=== PATIENT | male | born 1965 | race Caucasian/White ===

== ENCOUNTER 2021-01-21 02:07 | Emergency (ER) | payer OTHER ==
[~2021-01-21] VITALS: Ht 175.3 cm; Wt 86.2 kg
[2021-01-21 02:09] VITALS: BP 152/88
== END 2021-01-21 04:27 | disposition left against medical advice (07) ==
LOC: ER 02:07
DX: M54.5 Low back pain (principal); Z53.21 Procedure and treatment not carried out due to patient leaving prior to being seen by health care provider

== ENCOUNTER 2021-07-12 09:12 | Emergency (ER) | payer MEDICAID, OTHER ==
[~2021-07-12] VITALS: Ht 175.3 cm; Wt 83.9 kg
[2021-07-12 10:00] VITALS: BP 144/89
[2021-07-12] MEDS ORDERED: KETOROLAC TROMETH 60MG/2ML VIAL IM ONE (11:45)
== END 2021-07-12 11:54 | disposition home or self-care (01) ==
LOC: ER 09:12
DX: J20.9 Acute bronchitis, unspecified (principal); M19.012 Primary osteoarthritis, left shoulder; G89.29 Other chronic pain; M54.50 Low back pain, unspecified; F17.210 Nicotine dependence, cigarettes, uncomplicated; F12.10 Cannabis abuse, uncomplicated; Z20.822 Contact with and (suspected) exposure to COVID-19
CPT/HCPCS: 36415; 71045; 73030; 87426; 96372; 99284; J1885

== ENCOUNTER → 2021-08-23 | Emergency (ER) | payer MEDICAID ==
[~2021-08-23] VITALS: Ht 175.3 cm; Wt 75.7 kg
[2021-08-23 03:19] VITALS: BP 110/69
== END | disposition left against medical advice (07) ==
LOC: ER 03:18
DX: R05.9 Cough, unspecified (principal); R50.9 Fever, unspecified; Z20.822 Contact with and (suspected) exposure to COVID-19; Z53.21 Procedure and treatment not carried out due to patient leaving prior to being seen by health care provider
CPT/HCPCS: 36415; 87426

== ENCOUNTER 2022-11-21 22:46 | Emergency (ER) | payer MEDICAID, OTHER ==
[~2022-11-21] VITALS: Ht 175.3 cm; Wt 70.0 kg
[2022-11-21 22:55] VITALS: BP 134/74
[2022-11-21] MEDS ORDERED: ONDANSETRON HCL 4 MG/2 ML VIAL IV ONE (23:15)
[2022-11-21] MEDS ORDERED: HYDROmorphone HCL 2 MG/ML VL/or syr IV ONE (23:15)
[2022-11-21] MEDS ORDERED: IOHEXOL 300 MG/ML 100ML BOTTLE IJ ONE (23:15)
[2022-11-21] MEDS ORDERED: SODIUM CHLORIDE 0.9% 500 ML IV ONE (23:15)
== END 2022-11-21 23:37 | disposition left against medical advice (07) ==
LOC: EDBD 22:46 → ER 22:46
DX: R10.11 Right upper quadrant pain (principal); Z53.21 Procedure and treatment not carried out due to patient leaving prior to being seen by health care provider; V43.52XA Car driver injured in collision with other type car in traffic accident, initial encounter; Y93.89 Activity, other specified; Y92.89 Other specified places as the place of occurrence of the external cause; Y99.8 Other external cause status
CPT/HCPCS: 99281; Q9967

== ENCOUNTER 2022-12-20 08:13 | Emergency (ER) | payer MEDICAID, OTHER ==
[~2022-12-20] VITALS: Ht 172.7 cm; Wt 73.0 kg
[2022-12-20 08:20] VITALS: BP 179/114
[2022-12-20] MEDS ORDERED: LIDOCAINE W/ EPINEPHRINE 1% 20ML VIAL ONE (08:40)
[2022-12-20] MEDS ORDERED: LIDOCAINE W/ EPINEPHRINE 1.5 % INJ 5ML AMP IJ ONE (08:45)
[2022-12-20] MEDS ORDERED: SODIUM CHLORIDE 0.9% 1,000 ML IV ONE (08:45)
[2022-12-20] MEDS ORDERED: TETANUS-DIPTH-ACEL PERTUSSIS 0.5ML SYR Tdap IM ONE (11:00)
== END 2022-12-20 12:11 | disposition home or self-care (01) ==
LOC: ER 08:13
DX: S51.812A Laceration without foreign body of left forearm, initial encounter (principal); G89.29 Other chronic pain; M54.50 Low back pain, unspecified; F17.210 Nicotine dependence, cigarettes, uncomplicated; Z90.89 Acquired absence of other organs; W26.0XXA Contact with knife, initial encounter; Y93.89 Activity, other specified; Y92.89 Other specified places as the place of occurrence of the external cause; Y99.8 Other external cause status
CPT/HCPCS: 12002; 96360; 99283; J7030

== ENCOUNTER 2023-10-30 00:13 | Emergency (ER) | payer MEDICAID ==
[~2023-10-30] VITALS: Ht 172.7 cm; Wt 71.7 kg
[2023-10-30 00:52] VITALS: BP 144/79; PULSE 83; RESP 18; O2SAT 98
[2023-10-30] MEDS ORDERED: BACDST PO (01:56)
[2023-10-30] MEDS ORDERED: POLYSOL28 OP (01:56)
== END 2023-10-30 02:26 | disposition home or self-care (01) ==
LOC: ER 00:13
DX: H10.33 Unspecified acute conjunctivitis, bilateral (principal); L03.114 Cellulitis of left upper limb; F17.210 Nicotine dependence, cigarettes, uncomplicated; F12.10 Cannabis abuse, uncomplicated

== ENCOUNTER 2024-03-23 19:44 | Emergency (ER) | payer MEDICAID ==
[~2024-03-23] VITALS: Ht 175.3 cm; Wt 165.0 kg
[2024-03-23 19:44] VITALS: BP 151/92; PULSE 79; RESP 26; O2SAT 97
[~2024-03-23 19:44] MED LIST: BACDST PO; POLYSOL28 OP
[2024-03-23] MEDS: ACETAMINOPHEN 325 MG TAB PO ONE (21:01)
[2024-03-23] MEDS ORDERED: IBUP-1456 PO (22:13)
== END 2024-03-23 22:24 | disposition home or self-care (01) ==
LOC: ER 19:44
DX: S22.32XA Fracture of one rib, left side, initial encounter for closed fracture (principal); S70.02XA Contusion of left hip, initial encounter; E11.9 Type 2 diabetes mellitus without complications; F17.210 Nicotine dependence, cigarettes, uncomplicated; F12.10 Cannabis abuse, uncomplicated; W01.0XXA Fall on same level from slipping, tripping and stumbling without subsequent striking against object, initial encounter; Y93.89 Activity, other specified; Y92.89 Other specified places as the place of occurrence of the external cause; Y99.8 Other external cause status
CPT/HCPCS: 71101; 73502

== ENCOUNTER 2024-08-06 05:33 | Emergency (ER) | payer MEDICAID ==
[~2024-08-06] VITALS: Ht 170.2 cm; Wt 86.5 kg
[~2024-08-06 05:33] MED LIST changes: +IBUP-1456 PO
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
[2024-08-06] MEDS: MORPHINE SULFATE 4 MG/ML SYR/VIAL IV ONE (07:17)
[2024-08-06] MEDS: ONDANSETRON HCL 4 MG/2 ML VIAL IV ONE ×2 (07:18→08:35)
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
[2024-08-06 08:11] VITALS: PULSE 82; RESP 17; TEMP 98.2; O2SAT 100
--- NOTE | 2024-08-06 08:15 | DVH ---
EXAM: CT CERVICAL WITHOUT CONTRAST INDICATION: trauma EXAM DATE: 08/06/2024 07:42 AM COMPARISON: CT ABD PELVIS WO CONTRAST on DOS: 02/11/22 TECHNIQUE: Multiple axial CT images of the cervical spine were obtained using bone algorithm. Axial a nd coronal reformatting was done. Bone and soft tissue windows were reviewed. Radiation Dose Information: CT Dose: CTDI volume is 21.62 mGy. Dose-length product is 487.93 mGy*cm FINDINGS: The cervical alignment is intact. No acute cervical spine fracture is identified. The vertebral body heights are intact. No suspicious osseous lesions are identified. Multilevel degenerative changes most severe at C3-C4 through C5-C6 with moderate facet arthropathy an d posterior disc osteophyte complex causing moderate spinal canal stenosis. There is no prevertebral soft tissue swelling. IMPRESSION: No evidence of acute cervical spine fracture or traumatic malalignment. All CT scans at this medical facility are performed using dose modulation techniques as appropriate t o a performed exam including the following: Automated exposure control was utilized; adjustment of th e MA and/or KV according to patient size; and use of iterative reconstruction technique.
--- NOTE | 2024-08-06 08:18 | DVH ---
EXAM: CT HEAD WITHOUT CONTRAST HISTORY: trauma COMPARISON: CT ABD PELVIS WO CONTRAST on DOS: 02/11/22 TECHNIQUE: Axial images of the head were obtained and reformatted in coronal and sagittal planes. All CT scans at this medical facility are performed using dose modulation techniques as appropriate t o a performed exam including the following: Automated exposure control was utilized; adjustment of th e MA and/or KV according to patient size; and use of iterative reconstruction technique. CT Dose: CTDI volume is 62.93 mGy. Dose-length product is 1008.56 mGy*cm FINDINGS: There is no evidence of acute intracranial hemorrhage, mass, mass effect midline shift. There is no h ydrocephalus or extra-axial fluid collection. Jaquez-white matter differentiation is maintained.. The visualized paranasal sinuses and mastoid air cells are clear. The calvarium is intact. IMPRESSION: 1. No acute intracranial process. HS:Y
--- NOTE | 2024-08-06 08:22 | DVH ---
PROCEDURE: Left hand radiographs. INDICATION: RO FRACTURE TECHNIQUE: 3 views of the left hand were obtained. COMPARISON: None. FINDINGS: There is 3rd distal phalanx fracture. Joint spaces are maintained. The soft tissues are un remarkable. IMPRESSION: 1. 3rd distal phalanx fracture without displacement.
--- NOTE | 2024-08-06 08:25 | DVH ---
CLINICAL INDICATION: RO FRACTURE TECHNIQUE: XY R HAND 3 VIEW XRAY Comparison: None FINDINGS/IMPRESSION: The distal phalanges are hyperflex, therefore fracture can not be excluded. Consider repeat radiograp h without hyperflexion.
--- NOTE | 2024-08-06 08:27 | DVH ---
CT FACE HISTORY: trauma TECHNIQUE: Nonenhanced axial images through the facial bones with coronal and sagittal MPR. Radiation optimization: All CT scans at this facility use at least one of these dose optimization ruth hniques: automated exposure control mA and/or kV adjustment per patient size (includes targeted exam s where dose is matched to clinical indication) or iterative reconstruction. Radiation Dose Information: CT Dose: CTDI volume is 67 mGy. Dose-length product is 1363 mGy*cm FINDINGS: There is an acute nondisplaced fracture of the nasal bone. Bilateral orbital pineda are intact. The in traorbital and intracranial contents appear within normal limits. There are mild buckle deformities of the right zygomatic arch and posterior right maxillary sinus wal l suspicious for acute fractures. The maxilla and mandible are intact. The alignment of the temporom andibular joints is appropriate. The paranasal sinuses and mastoid air cells are clear. IMPRESSION: 1. Acute nondisplaced fracture of the nasal bone. 2. There are mild buckle deformities of the right zygomatic arch in the posterior right maxillary sin us wall suspicious for acute fractures. HS:Y
[2024-08-06] MEDS: HYDROmorphone HCL 2 MG/ML VL/or syr IV ONE (08:36)
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
[2024-08-06 11:00] VITALS: O2SAT 95
--- NOTE | 2024-08-06 11:29 | DVH ---
CLINICAL INDICATION: repeat xray TECHNIQUE: XY R HAND 3 VIEW XRAY Comparison: XY L HAND 3V XRAY on DOS: 08/06/24, XY R HAND 3 VIEW XRAY on DOS: 08/06/24 FINDINGS/IMPRESSION: There is no evidence of acute fracture or dislocation. The visualized joint space is well maintained. The alignment is anatomical. There is no radiopaque foreign body.
[2024-08-06] MEDS: TETANUS-DIPTH-ACEL PERTUSSIS 0.5ML SYR Tdap IM ONE (11:36)
[2024-08-06] MEDS: hydrALAZINE HCL 20 MG/ML VL IV ONE (11:37)
[2024-08-06 11:39] VITALS: BP 179/105; PULSE 78; RESP 15
== END 2024-08-06 10:38 | disposition home or self-care (01) ==
LOC: ER 05:33 → EDBD 05:33 → ER 10:38
DX: S62.663A Nondisplaced fracture of distal phalanx of left middle finger, initial encounter for closed fracture (principal); S02.2XXA Fracture of nasal bones, initial encounter for closed fracture; S02.40FA Zygomatic fracture, left side, initial encounter for closed fracture; I10 Essential (primary) hypertension; E11.9 Type 2 diabetes mellitus without complications; F17.210 Nicotine dependence, cigarettes, uncomplicated; R51.9 Headache, unspecified; Z79.899 Other long term (current) drug therapy; Z98.890 Other specified postprocedural states; Z90.89 Acquired absence of other organs; Z96.653 Presence of artificial knee joint, bilateral; W18.39XA Other fall on same level, initial encounter; Y93.55 Activity, bike riding; Y92.89 Other specified places as the place of occurrence of the external cause; Y99.8 Other external cause status
CPT/HCPCS: 70450; 70486; 72125; 72131; 73130; 90471; 90715; 96374; 96375; 96376; 99285; J0360; J1171; J2270; J2405

== ENCOUNTER 2025-07-02 12:49 | Inpatient (IN) | payer MEDICAID ==
[~2025-07-02] VITALS: Ht 170.2 cm; Wt 69.0 kg
--- NOTE | 2025-07-02 14:27 | ED.PDOC ---
General HPI Comments 60 y.o male presents to the ED for a chief complaint of hematuria associated with dysuria, and right sided abdominal pain radiating to his flank that started one day ago. Patient reports bleeding is heavy with burning sensation with output. He reports no previous history of urinary problems such as UTI's or kidney stones but is concerned given family history of prostate cancer. He denies any fever, chills, nausea, vomiting, diarrhea. Chief Complaint: Urinary Time Seen by MD: 14:02 Primary Care Provider: UNKNOWN Reviewed notes: Nurses Notes, Medications, Allergies Allergies: Coded Allergies: NO KNOWN ALLERGIES (Unverified , 01/21/21) Home Meds Active Scripts Ibuprofen (Ibuprofen) 800 Mg Tab, 1 TAB PO TID PRN, #30 TAB 0 Refills Prov:SHAISTA YING 03/23/24 Sulfamethoxazole W/Trimethopri (Bactrim Ds Tablet) 1 Tab Tb, 1 TAB PO BID for 7 Days, #14 TAB Prov:IRENE GAONA [facility] 10/30/23 Polymyxin B-Trimethoprim (Trimethoprim Sulfate/Poly) Polymyxn Jane, 1 DROP OP Q3HR for 7 Days, #10 ML Prov:IRENE GAONA [facility] 10/30/23 Information Source: Patient Mode of Arrival: EMS Severity: Moderate Timing: Days (1) Duration: Since onset Onset: Spontaneous Symptoms: Dysuria, Hematuria History of: None Location: Abdomen, (R) Flank Modifying factors: None associated signs and symptoms: Abdominal Pain, Flank Pain, Dysuria, Hematuria Past Medical History PAST MEDICAL HISTORY: DM Surgical History: Tonsillectomy Family History Family History: Family hx of Cancer Social History Smoker: Cigarettes, Less Than 1 Pack/Day Alcohol: Denies ETOH Use Drugs: Marijuana Lives In: Home Constitutional: denies: chills, diaphoresis, fatigue, fever, malaise, sweats, weakness, others EENTM: denies: blurred vision, double vision, ear bleeding, ear discharge, ear drainage, ear pain, ear ringing, eye pain, eye redness, hearing loss, mouth pain, mouth swelling, nasal discharge, nose bleeding, nose congestion, nose pain, photophobia, tearing, throat pain, throat swelling, voice changes, others Respiratory: denies: cough, hemoptysis, orthopnea, SOB at rest, shortness of breath, SOB with excertion, stridor, wheezing, others Cardiovascular: denies: chest pain, dizzy spells, diaphoresis, Dyspnea on exertion, edema, irregular heart beat, left arm pain, lightheadedness, palpitations, PND, syncope, others Gastrointestinal: denies: abdomen distended, abdominal pain, blood streaked bowels, constipated, diarrhea, dysphagia, difficulty swallowing, hematemesis, melena, nausea, poor appetite, poor fluid intake, rectal bleeding, rectal pain, vomiting, others Genitourinary: reports: dysuria, flank pain, hematuria; denies: burning, frequency, incontinence, penile discharge, penile sore, pain, testicle pain, testicle swelling, urgency, others Neurological: denies: dizziness, fainting, headache, left sided numbness, left sided weakness, numbness, paresthesia, pre-existing deficit, right sided numbness, right sided weakness, seizure, speech problems, tingling, tremors, weakness, others Musculoskeletal: denies: back pain, gout, joint pain, joint swelling, muscle pain, muscle stiffness, neck pain, others Integumetry: denies: bruises, change in color, change in hair/nails, dryness, laceration, lesions, lumps, rash, wounds, others Allergic/Immunocompromised: denies: Difficulty Healing, Frequent Infections, Hives, Itching, others Hematologic/Lymphatic: denies: anemia, blood clots, easy bleeding, easy bruisi ng, swollen glands, others Endocrine: denies: excessive hunger, excessive sweating, excessive thirst, exce ssive urination, flushing, intolerance to cold, intolerance to heat, unexplained weight gain, unexplained weight loss, others Psychiatric: denies: anxiety, bipolar disorder, depression, hopeless, panic disorder, schizophrenia, sleepless, suicidal, others All Other Systems: Reviewed and Negative Physical Exam General Appearance: Moderate Distress HEENT: Normal ENT Inspection, Pharynx Normal, TMs Normal Neck: Full Range of Motion, Non-Tender, Normal, Normal Inspection Respiratory: Chest Non-Tender, Lungs Clear, No Accessory Muscle Use, No Respiratory Distress, Normal Breath Sounds Cardiovascular: No Edema, No JVD, No Murmur, No Gallop, Normal Peripheral Pulses, Regular Rate/Rhythm Breast Exam: Deferred Gastrointestinal: No Organomegaly, Non Tender, No Pulsatile Mass, Normal Bowel Sounds, Soft Genitalia: Deferred Pelvic: Deferred Rectal: Deferred Extremities: No calf tenderness, Normal capillary refill, Normal inspection, Normal range of motion, Non-tender, No pedal edema Musculoskeletal : Apperance: Normal Neurologic: Alert, insurance underwriting assistant II-XII nml as Tested, No Motor Deficits, Normal Affect, Normal Mood, No Sensory Deficits Cerebellar Function: Normal Reflexes: Normal Skin: Dry, Normal Color, Warm Peripheral Pulses: 3+ Radial (R), 3+ Radial (L) Lymphatic: No Adenopathy Was a procedure done? Was a procedure done?: No Differential Diagnosis Kidney stone (Female): Musculoskeletal pain, Pancreatitis, Pyelonephritis, Strain Urinary Problem (Male): Urethritis, Urinary Retention, Urolithiasis, UTI X-Ray, Labs, Meds, VS Vital Signs Date Time Temp Pulse Resp B/P (MAP) Pulse Ox O2 Delivery O2 Flow Rate FiO2 07/02/25 13:40 98.2 85 26 143/89 100 98.2 Lab Test 07/02/25 13:10 Range/Units Urine Color Red H Yellow Urine Clarity Cloudy H Clear Urine pH 7.0 5.0-9.0 Urine Specific [place] 1.016 1.001-1.035 Urine Protein 1+ H Negative Urine Ketones Negative Negative Urine Blood 3+ H Negative /uL Urine Nitrite Negative Negative Urine Bilirubin Negative Negative Urine Urobilinogen Normal Negative mg/dL Urine Leukocyte Esterase 3+ Negative /uL Urine RBC 4453 0 - 3 /hpf Urine Microscopic WBC 321 H 0-3 /HPF Urine Squamous Epithelial Cells Few <5 /hpf Urine Bacteria Few H None Seen /hpf Urine Glucose Normal Normal mg/dL Patient alert. Complaining of flank pain. Vitals stable. Answering questions. Continues smoke cigarettes. Counseled patient on effects of smoking cigarettes for 15 minutes. Urinalysis shows blood as well as infection. Urosepsis. Establish intravenous access. Was given fluids. Was given Rocephin. Was given Toradol. Explained to the patient. Continue monitoring. Time of 1ST Reevaluation: 14:23 Reevaluation 1ST: Unchanged Patient Education/Counseling: Diagnosis, Treatment, Prognosis Family Education/Counseling: No Family Present SEPSIS Sepsis Screen Date sepsis recognized/suspect: Jul 02, 2025 Time Sepsis recognized/suspect: 1250 Recent Procedure: No On Antibiotic Therapy: No Respiratory Rate >20: Yes Heart Rate >90: No Temp<36 C (96.8 F) or >38.3 C: No SBP <90 or MAP <65 mmHG: No New Acute Mental Status Change: No Is the patient on CPAP, BIPAP,: No Vital Signs Date Time Temp Pulse Resp B/P (MAP) Pulse Ox O2 Delivery O2 Flow Rate FiO2 07/02/25 13:40 98.2 85 26 143/89 100 98.2 Departure 1 Departure Time of Disposition: 15:14 Impression: Primary Impression: Sepsis due to urinary tract infection Additional Impression: Kidney stone Disposition: ADMITTED INPATIENT Admit to: Med Surg Condition: Guarded Critical Care Note Critical Care Time?: No Stability Stability form required: No I personally scribed for TITI TREJO MD ([email or web address]) on 07/02/25 at 14:27. Electronically submitted by Arabella Jordan ([facility]). TITI TREJO MD Jul 02, 2025 14:27
[2025-07-02 14:34] LABS: Urine Protein, UAD 1+ (Negative)
[2025-07-02] MEDS: SODIUM CHLORIDE 0.9% 1,000 ML IV ONE ×2 (15:15→16:07)
[2025-07-02] MEDS: KETOROLAC TROMETH 30 MG/ML 1ML VIAL IV ONE (16:07)
[2025-07-02 16:17] LABS: Hematocrit 42.3 % (41.0-53.0); Hemoglobin 14.3 g/dL (13.5-17.5); Mean Corpuscular Hemoglobin 31.2 pg (28.0-32.0); Mean Corpuscular Volume 92.1 fL (80.0-100.0); Nucleated Red Blood Cells % 0.0 %
[2025-07-02 16:23] LABS: Chloride 102 mmol/L (98-107); Potassium 3.9 mmol/L (3.5-5.1); Sodium 140 mmol/L (136-145)
[2025-07-02 16:24] LABS: Calcium 9.4 mg/dL (8.7-10.4)
[2025-07-02 16:29] LABS: BUN/Creatinine Ratio 9.3 (10.0-20.0); Glucose 99 mg/dL (74-106)
[2025-07-02 16:33] LABS: Anion Gap 8 (5-15); Blood Urea Nitrogen 8 mg/dL (9-23); Carbon Dioxide 30 mmol/L (20-31)
[2025-07-02] MEDS ORDERED: HYDROcodone-ACET 5/325MG TAB PO PRN (20:00)
[2025-07-02] MEDS ORDERED: ONDANSETRON HCL 4 MG/2 ML VIAL IV PRN (20:00)
[2025-07-02] MEDS ORDERED: DOCUSATE SOD 100 MG CAP PO PRN (20:00)
[2025-07-02] MEDS ORDERED: ACETAMINOPHEN 325 MG TAB PO PRN (20:00)
--- NOTE | 2025-07-02 21:08 | DVHHP2 ---
History of Present Illness Reason for Visit: Urinary tract infection History of Present Illness The patient is a 60-year-old male with past medical history of diabetes mellitus who presented to [facility] ED with complaint of hematuria. Patient reports she has been experiencing hematuria associated with dysuria, abdominal pain radiating to his flanks, burning sensation with urination, getting worse that prompted this visit. Patient was seen and evaluated in the ED, laboratory data shows WBC 10.1, platelets 379, sodium 140, potassium 3.9, BUN 8, creatinine 0.86, glucose 99, calcium 9.4, blood pressure 145/93, heart rate 85, temperature 98.1 F, O2 saturation 97% on room air. Urinalysis positive for urinary tract infection. Patient was started on IV antibiotic regimen Rocephin, please see medication orders section in the computer. On my assessment, patient denied chest pain, no headache, dizziness, diaphoresis, shortness of breaths, no abdominal pain at this moment, diarrhea, nausea, vomiting, fever, no chills. Patient was admitted for further evaluation and medical management. Past Medical History Diabetes mellitus Past Surgical History Tonsillectomy Family History Reviewed, noncontributory to the management of this case. Past Social History The patient lives at home, smokes cigarettes less than 1 pack per day, denies alcohol use, uses marijuana. Review of Systems Constitutional: No: Fever, Chills, Sweats, Weakness, Malaise, Other Eyes: No: Pain, Vision change, Conjunctivae inflammation, Eyelid inflammation, Other, Redness ENT: No: Ear pain, Ear discharge, Nose pain, Nose discharge, Nose congestion, Mouth pain, Mouth swelling, Throat pain, Throat swelling, Other Respiratory: No: Cough, Dry, Shortness of breath, SOB with excertion, Wheezing, Hemoptysis, Pleuritic Pain, Sputum, Wheezing, Other Cardiovascular: No: Chest Pain, Palpitations, Orthopnea, Paroxysmal Noc. Dyspnea, Edema, Lt Headedness, Other Gastrointestinal: Abdominal Pain Genitourinary: Dysuria; No Frequency, No Incontinence; Hematuria; No Retention; Other (Flank pain) Musculoskeletal: No: other, neck pain, shoulder pain, arm pain, back pain, hand pain, leg pain, foot pain Skin: No: Rash, Lesions, Jaundice, Bruising, Other Neurological: No: Weakness, Numbness, Incoordination, Change in speech, Confusion, Seizures, Other Allergies: Coded Allergies: NO KNOWN ALLERGIES (Unverified , 01/21/21) Medications Current Medications Medications Dose Ordered Sig/Luis Carlos Route Start Time Stop Time Status Last Admin Dose Admin Ceftriaxone Sodium 50 ml @ 100 mls/hr DAILY@1530 IV 07/03/25 15:30 Sodium Chloride 10 ml Q8HR IV 07/02/25 22:00 Acetaminophen/ Hydrocodone Bitart 1 tab Q4HP PRN PO 07/02/25 20:00 Ondansetron HCl 4 mg Q4HP PRN IV 07/02/25 20:00 Docusate Sodium 100 mg BIDPRN PRN PO 07/02/25 20:00 Acetaminophen 650 mg Q6HP PRN PO 07/02/25 20:00 Exam Vital Signs Vital Signs Date Time Temp Pulse Resp B/P (MAP) Pulse Ox O2 Delivery O2 Flow Rate FiO2 07/02/25 16:15 98.1 85 16 145/93 (110) 97 98.1 07/02/25 16:15 Room Air General Appearance: Alert, Oriented X3, Cooperative, No acute distress HEENT: Atraumatic, PERRLA, EOMI, Mucous membr. moist/pink Respiratory: Normal air movement Cardiovascular: Regular rate, Normal S1, Normal S2, No murmurs Abdominal: Normal bowel sounds, Soft, No tenderness, No hepatospenomegaly, No masses Extremities: No clubbing, No cyanosis, No edema, Normal pulses, No tenderness/swelling Skin: No rashes, No significant lesion Neuro: Normal speech, Normal tone, Sensation intact, Cranial nerves 3-12 NL, Reflexes 2+, Other (Generalized weakness) Psych/Mental Status: Mental status NL, Mood NL Labs/Xrays Labs Test 07/02/25 15:32 07/02/25 13:10 Range/Units White Blood Count 10.1 4.4-10.8 10^3/uL Red Blood Count 4.59 4.5-5.90 10^6/uL Hemoglobin 14.3 13.5-17.5 g/dL Hematocrit 42.3 41.0-53.0 % Mean Corpuscular Volume 92.1 80.0-100.0 fL Mean Corpuscular Hemoglobin 31.2 28.0-32.0 pg Mean Corpuscular Hemoglobin Concent 33.8 32.0-36.0 g/dL Red Cell Distribution Width 14.0 11.8-14.3 % Platelet Count 379 140-450 10^3/uL Mean Platelet Volume 7.5 6.9-10.8 fL Neutrophils (%) (Auto) 78.8 37.0-80.0 % Lymphocytes (%) (Auto) 10.8 10.0-50.0 % Monocytes (%) (Auto) 8.6 0.0-12.0 % Eosinophils (%) (Auto) 1.2 0.0-7.0 % Basophils (%) (Auto) 0.6 0.0-2.0 % Neutrophils # (Auto) 8.0 1.6-8.6 10 ^3/uL Lymphocytes # (Auto) 1.1 0.4-5.4 10 ^3/uL Monocytes # (Auto) 0.9 0-1.3 10 ^3/uL Eosinophils # (Auto) 0.1 0-0.8 10 ^3/uL Basophils # (Auto) 0.1 0-0.2 10 ^3/uL Nucleated Red Blood Cells 0.0 % Sodium Level 140 136-145 mmol/L Potassium Level 3.9 3.5-5.1 mmol/L Chloride Level 102 98-107 mmol/L Carbon Dioxide Level 30 20-31 mmol/L Anion Gap 8 5-15 Blood Urea Nitrogen 8 L 9-23 mg/dL Creatinine 0.86 0.700-1.30 mg/dL Glomerular Filtration Rate Calc 100 >90 mL/min BUN/Creatinine Ratio 9.3 L 10.0-20.0 Serum Glucose 99 74-106 mg/dL Calcium Level 9.4 8.7-10.4 mg/dL Urine Color Red H Yellow Urine Clarity Cloudy H Clear Urine pH 7.0 5.0-9.0 Urine Specific [place] 1.016 1.001-1.035 Urine Protein 1+ H Negative Urine Ketones Negative Negative Urine Blood 3+ H Negative /uL Urine Nitrite Negative Negative Urine Bilirubin Negative Negative Urine Urobilinogen Normal Negative mg/dL Urine Leukocyte Esterase 3+ Negative /uL Urine RBC 4453 0 - 3 /hpf Urine Microscopic WBC 321 H 0-3 /HPF Urine Squamous Epithelial Cells Few <5 /hpf Urine Bacteria Few H None Seen /hpf Urine Glucose Normal Normal mg/dL SEPSIS Sepsis Screen Date sepsis recognized/suspect: Jul 02, 2025 Time Sepsis recognized/suspect: 0 Recent Procedure: No On Antibiotic Therapy: No Respiratory Rate >20: Yes Heart Rate >90: No Temp<36 C (96.8 F) or >38.3 C: No SBP <90 or MAP <65 mmHG: No New Acute Mental Status Change: No Is the patient on CPAP, BIPAP,: No Physician Orders Sodium Chloride 0.9% (07/02/25 15:15) Ceftriaxone 1gm/50ml (Rocephin) (07/03/25 15:30) Allergies (07/02/25 19:55) Code Status (07/02/25 19:55) Sodium Chloride Lock (Saline Lock Ns) (07/02/25 22:00) Oxygen Per Hour (07/02/25 19:55) Hydrocodone-Acet 5/325mg Tab (Scalf 5/32 (07/02/25 20:00) Ondansetron Hcl (Zofran) (07/02/25 20:00) Docusate Sodium Capsule (Colace Capsule) (07/02/25 20:00) Complete Blood Count (07/03/25 04:00) Comprehensive Metabolic Panel (07/03/25 04:00) Cardiac Diet-2gna,Lofat,Lochol (07/03/25 Breakfast) Condition: Fair (07/02/25 19:55) Acetaminophen Tablet (Tylenol Tablet) (07/02/25 20:00) Bedrest With Bathroom Privileg (07/02/25 19:55) Sequential Compression Device (07/02/25 ) Vital Signs Date Time Temp Pulse Resp B/P (MAP) Pulse Ox O2 Delivery O2 Flow Rate FiO2 07/02/25 16:15 98.1 85 16 145/93 (110) 97 98.1 07/02/25 16:15 85 16 97 Room Air 07/02/25 13:40 98.2 85 26 143/89 100 98.2 Laboratory Tests Test 07/02/25 15:32 White Blood Count 10.1 10^3/uL (4.4-10.8) Medications Medications Dose Ordered Sig/Luis Carlos Route Start Time Stop Time Status Last Admin Dose Admin Ceftriaxone Sodium 50 ml @ 100 mls/hr ONCE ONCE IV 07/02/25 15:15 07/02/25 15:44 DC 07/02/25 16:07 100 MLS/HR Ketorolac Tromethamine 30 mg ONCE ONCE IV 07/02/25 15:15 07/02/25 15:16 DC 07/02/25 16:07 30 MG Sodium Chloride 1,000 ml @ 1,000 mls/hr Q1H ONCE IV 07/02/25 15:15 07/02/25 16:14 DC 07/02/25 16:07 1,000 MLS/HR Assessment/Plan Assessment/Plan Kidney stone Urinary tract infection Hypertension Generalized weakness Plan 1. Admit to med surge unit 2. Breathing treatment 3. Pain control management 4. IV antibiotic management 5. Management of fluids and electrolytes 6. Consultation for hospitalist 7. Diagnostic test chest x-ray 8. DVT prophylaxis on SCDs 9. Repeat labs CBC, CMP in a.m. 10. Home medication reviewed and reconciled 11. Continue with current medical management 12. Treatment plan discussed with patient and RN. Patient verbalized understanding. Plan discussed with: Patient, Other (RN) My Orders Orders - QUENTIN RAMIREZ DNP Procedure Category Date Status Time Ceftriaxone 1gm/50ml PHA 07/03/25 In Process (Rocephin) 15:30 Allergies NEERAJ 07/02/25 In Process 19:55 Code Status CODE 07/02/25 Transmitted 19:55 Sodium Chloride Lock PHA 07/02/25 In Process (Saline Lock Ns) 22:00 Oxygen Per Hour RT 07/02/25 Transmitted 19:55 Hydrocodone-Acet PHA 07/02/25 In Process 5/325mg Tab (Scalf 20:00 Ondansetron Hcl PHA 07/02/25 In Process (Zofran) 20:00 Docusate Sodium PHA 07/02/25 In Process Capsule (Colace 20:00 Complete Blood Count LAB 07/03/25 Verified 04:00 Comprehensive LAB 07/03/25 Verified Metabolic Panel 04:00 Cardiac DIET 07/03/25 Transmitted Diet-2gna,Lofat,Lochol Breakfast Condition: Fair NEERAJ 07/02/25 In Process 19:55 Acetaminophen Tablet PHA 07/02/25 In Process (Tylenol Tablet) 20:00 Bedrest With Bathroom NEERAJ 07/02/25 In Process Privileg 19:55 Sequential NEERAJ 07/02/25 In Process Compression Device Problem List: (1) Kidney stone (2) Urinary tract infection (3) HTN (hypertension) (4) Generalized weakness Date of Service: Jul 02, 2025 Billing Provider: QUENTIN ARMIREZ DNP Common Visit Codes: 57140-[id number] INP/OBS CARE (HIGH) QUENTIN RAMIREZ DNP Jul 02, 2025 21:08
[2025-07-02] MEDS ORDERED: MORPHINE SULFATE INJ 2 MG/ml SYRG IV PRN (21:15)
[2025-07-02] MEDS ORDERED: NITROGLYCERIN 0.4 MG SL TAB SL PRN (21:15)
[2025-07-02 22:10] VITALS: BP 137/96; PULSE 74; RESP 19; TEMP 97.6; O2SAT 97; O2SAT 98
[2025-07-02] MEDS: SODIUM CHLOR 0.9% PF (SALINE LOCK) 10ML VIAL/SYR IV SCH (23:31)
[2025-07-03 01:00] VITALS: BP 137/80; PULSE 76; RESP 18; TEMP 97.9; O2SAT 98
[2025-07-03 05:00] VITALS: BP 164/100; PULSE 70; RESP 18; TEMP 97.6; O2SAT 99
[2025-07-03 05:45] VITALS: BP 150/94; PULSE 66; RESP 20
[2025-07-03 07:36] LABS: Hematocrit 43.7 % (41.0-53.0); Hemoglobin 14.5 g/dL (13.5-17.5); Mean Corpuscular Hemoglobin 31.1 pg (28.0-32.0); Mean Corpuscular Volume 93.3 fL (80.0-100.0); Nucleated Red Blood Cells % 0.0 %
[2025-07-03 07:55] LABS: Alanine Aminotransferase 15 U/L (7-40); Albumin 4.4 g/dL (3.2-4.8); Anion Gap 9 (5-15); BUN/Creatinine Ratio 8.3 (10.0-20.0); Calcium 9.1 mg/dL (8.7-10.4); Carbon Dioxide 28 mmol/L (20-31); Chloride 103 mmol/L (98-107); Glucose 84 mg/dL (74-106); Potassium 4.0 mmol/L (3.5-5.1); Sodium 140 mmol/L (136-145); Total Protein 7.3 g/dL (5.7-8.2)
[2025-07-03 08:00] LABS: Alkaline Phosphatase 121 U/L (46-116); Bilirubin, Total 0.3 mg/dL (0.2-1.0); Blood Urea Nitrogen 7 mg/dL (9-23)
--- NOTE | 2025-07-03 22:00 | DVHDS2 ---
Discharge Summary Date of Admission Jul 02, 2025 at 21:06 Date of Discharge: Jul 03, 2025 Labs/Diagnostic Data: Laboratory Results Test 07/03/25 06:56 07/02/25 13:10 White Blood Count 5.8 10^3/uL (4.4-10.8) Red Blood Count 4.68 10^6/uL (4.5-5.90) Hemoglobin 14.5 g/dL (13.5-17.5) Hematocrit 43.7 % (41.0-53.0) Mean Corpuscular Volume 93.3 fL (80.0-100.0) Mean Corpuscular Hemoglobin 31.1 pg (28.0-32.0) Mean Corpuscular Hemoglobin Concent 33.3 g/dL (32.0-36.0) Red Cell Distribution Width 14.3 % (11.8-14.3) Platelet Count 404 10^3/uL (140-450) Mean Platelet Volume 6.9 fL (6.9-10.8) Neutrophils (%) (Auto) 64.2 % (37.0-80.0) Lymphocytes (%) (Auto) 19.3 % (10.0-50.0) Monocytes (%) (Auto) 11.7 % (0.0-12.0) Eosinophils (%) (Auto) 4.1 % (0.0-7.0) Basophils (%) (Auto) 0.7 % (0.0-2.0) Neutrophils # (Auto) 3.7 10 ^3/uL (1.6-8.6) Lymphocytes # (Auto) 1.1 10 ^3/uL (0.4-5.4) Monocytes # (Auto) 0.7 10 ^3/uL (0-1.3) Eosinophils # (Auto) 0.2 10 ^3/uL (0-0.8) Basophils # (Auto) 0 10 ^3/uL (0-0.2) Nucleated Red Blood Cells 0.0 % Sodium Level 140 mmol/L (136-145) Potassium Level 4.0 mmol/L (3.5-5.1) Chloride Level 103 mmol/L (98-107) Carbon Dioxide Level 28 mmol/L (20-31) Anion Gap 9 (5-15) Blood Urea Nitrogen 7 mg/dL (9-23) Creatinine 0.84 mg/dL (0.700-1.30) Glomerular Filtration Rate Calc 101 mL/min (>90) BUN/Creatinine Ratio 8.3 (10.0-20.0) Serum Glucose 84 mg/dL (74-106) Calcium Level 9.1 mg/dL (8.7-10.4) Total Bilirubin 0.3 mg/dL (0.2-1.0) Aspartate Amino Transferase (AST) 14 U/L (13-40) Alanine Aminotransferase (ALT) 15 U/L (7-40) Alkaline Phosphatase 121 U/L (46-116) Total Protein 7.3 g/dL (5.7-8.2) Albumin 4.4 g/dL (3.2-4.8) Urine Color Red (Yellow) Urine Clarity Cloudy (Clear) Urine pH 7.0 (5.0-9.0) Urine Specific [place] 1.016 (1.001-1.035) Urine Protein 1+ (Negative) Urine Ketones Negative (Negative) Urine Blood 3+ /uL (Negative) Urine Nitrite Negative (Negative) Urine Bilirubin Negative (Negative) Urine Urobilinogen Normal mg/dL (Negative) Urine Leukocyte Esterase 3+ /uL (Negative) Urine RBC 4453 /hpf (0 - 3) Urine Microscopic WBC 321 /HPF (0-3) Urine Squamous Epithelial Cells Few /hpf (<5) Urine Bacteria Few /hpf (None Seen) Urine Glucose Normal mg/dL (Normal) Other Laboratory Tests 07/03/25 06:56 Brief Hx & Hospital Course: Kidney stone Urinary tract infection Hypertension Generalized weakness pt left AMA Condition at Discharge: Fair Final Diagnosis/Problems List see above Discharge Disposition: AMA Discharge Instruct/Medications Scheduled Polymyxin B-Trimethoprim (Trimethoprim Sulfate/Poly), 1 DROP OP Q3HR Sulfamethoxazole W/Trimethopri (Bactrim Ds Tablet), 1 TAB PO BID Scheduled PRN Ibuprofen (Ibuprofen), 1 TAB PO TID PRN Discharge Statement: "Patient was advised to return to the ER or call 911 if any headaches, dizziness, shortness of breath, chest pain, abdominal pain, bleeding, fevers, or worsening of medical condition. Patient was counseled about treatment plan, medications, possible side effects, patientverbalized understanding. All questions were answered to the best of my ability. This discharge took greater then 30 minutes in planning, reviewing documentation, counseling the patient, and discussing with other team members." ASSESSMENT ASSESSMENT Assessment Date of Service: Jul 03, 2025 Billing Provider: ARIELLE COONEY DO Common Visit Codes: 19844-JJO/OBS DISCH DAY >30min ARIELLE COONEY DO Jul 03, 2025 22:00
== END 2025-07-03 09:15 | disposition left against medical advice (07) | DRG 465 ==
LOC: ER 12:49 → EDBD 12:49 → OVERFLOW 21:06 → WEST WING 21:07
PROVIDERS: ADMIT Nurse Practitioner Family; ATTEND Nurse Practitioner Family
DX: N20.0 Calculus of kidney (principal); E11.9 Type 2 diabetes mellitus without complications; N39.0 Urinary tract infection, site not specified; I10 Essential (primary) hypertension; F17.210 Nicotine dependence, cigarettes, uncomplicated; Z53.29 Procedure and treatment not carried out because of patient's decision for other reasons; Z80.42 Family history of malignant neoplasm of prostate
CPT/HCPCS: 36415; 80048; 80053; 81001; 85025; 87086; 96365; 96375; G0378; J1885